=== PATIENT | female | born 1965 | race Caucasian/White ===

== ENCOUNTER 2017-08-10 13:04 | Emergency (ER) | payer OTHER ==
[~2017-08-10] VITALS: Ht 165.1 cm; Wt 67.6 kg
[2017-08-10 15:11] LABS: ABSOLUTE BASOPHIL COUNT 0 /CUMM (0.0-0.2); ABSOLUTE EOSINOPHIL COUNT 0.4 /CUMM (0.0-0.7); ABSOLUTE GRANULOCYTE CT 5.7 /CUMM (1.4-6.5); ABSOLUTE LYMPH COUNT 2.6 /CUMM (1.2-3.4); ABSOLUTE MONOCYTE COUNT 0.5 /CUMM (0.10-0.60); BASOPHIL % 0.4 % (0.0-2.0); EOSINOPHIL % 4.1 % (0-5); GRANULOCYTE % 62.3 % (42.2-75.2); HEMATOCRIT 37.7 % (37-47); MEAN CORPUSCULAR HGB 32.7 PG (27.0-31.0); MEAN CORPUSCULAR HGB CONC 33.7 G/DL (33.0-37.0); MEAN CORPUSCULAR VOLUME 97.1 FL (81.0-99.0); MEAN PLATELET VOLUME 8.3 FL (7.4-10.4); PLATELET COUNT 333 /CUMM (130-400); RBC DISTRIBUTION WIDTH 13.7 % (11.5-14.5); RED BLOOD CELL CT 3.88 /CUMM (4.20-5.40); WHITE BLOOD CELL COUNT 9.1 /CUMM (4.8-10.8)
--- NOTE | 2017-08-10 17:06 | ED GENERAL ADULT ---
History of Present Illness General Chief Complaint: ETOH/Drug Related Complaint Stated Complaint: SENT FOR CLEARENCE TO [facility] Source: patient Exam Limitations: no limitations Vital Signs & Intake/Output Vital Signs & Intake/Output Vital Signs Date Time Temp Pulse Resp B/P B/P Pulse O2 O2 Flow FiO2 Mean Ox Delivery Rate 08/10 1728 97.8 82 20 137/69 08/10 1727 Room Air 08/10 1726 97.8 82 20 137/69 100 08/10 1333 96.5 78 18 107/55 94 Room Air ED Intake and Output 08/11 0000 08/10 1200 Intake Total Output Total Balance Patient 149 lb Weight Weight Reported by Patient Measurement Method Allergies Coded Allergies: No Known Drug Allergies (Intermediate, NONE 08/10/17) Triage Note: HERE FOR MEDICAL CLEARANCE FOR HIGH P21. (DETOX OFF ALCOHOL) . LAST DRINK 2 DAYS AGO. HAS BEEN TAKING CLONAZEPAN .5 MG FOR "SHAKES" AND ANXIETY. Triage Nurses Notes Reviewed? yes Onset: Gradual Duration: worse persistent since (years) Timing: recent history Injury Environment: home Severity: moderate Severity Numbers: 6 Modifying Factors: Improves With: other (benzos). Associated Symptoms: anxiety HPI: Patient is a 52-year-old female with history of alcohol dependence and abuse along with anxiety and depression presenting to the emergency department for clearance prior to going to outside detox facility. Patient reports her last drink was a day and a half ago. Denies any other drug use. She does report that she is prescribed clonazepam for breakthrough anxiety. She took 2.5 mg tablets earlier today for her anxiety. No history of withdrawal seizures. Denies any nausea vomiting or abdominal pain. No diarrhea. The muscle aches. No visual changes. Denies any hallucinations. Denies any suicidal or homicidal ideation. She works that she's been drinking anywhere from 10-12 drinks, hard alcohol daily for the past 20 years. She was sober for a period of 5 months copiers ago and then relapsed. Denies any history of pancreatitis. denies going through detox in the past. (Carlos GOULD,Buffy) Reconcile Medications No Known Home Medications (Doug WINTER,Romy) Past History Travel History Traveled to [place] past 21 day No Medical History Any Pertinent Medical History? see below for history Respiratory: asthma Psychiatric: anxiety Surgical History Surgical History: non-contributory Psychosocial History What is your primary language [place] Tobacco Use: Never used ETOH Use: alcoholic Family History Hx Contributory? No (Buffy Peralta) Review of Systems Review of Systems Constitutional: Reports: no symptoms. Comments Review of systems: See HPI, All other systems negative. Constitutional, no chills fever or weight loss HEENT: No visual changes no sore throat no congestion Cardiovascular: No chest pain ,palpitation Skin, no jaundice no rashes Respiratory: No dyspnea cough sputum or hemoptysis GI: No nausea no vomiting : No dysuria No hematuria Muscle skeletal: no back pain, no neck pain, Neurologic: No numbness no confusion, no headache Psych: Positive anxiety and depression Heme/endocrine: No bruising no bleeding no polyuria or polydipsia Immunology: No splenectomy or history of AIDS (Buffy Peralta) Physical Exam Physical Exam General Appearance: well developed/nourished, no apparent distress, alert, anxious Comments: Well-developed well-nourished person in no acute distress HEENT: Pupils equally round and reactive to light and accommodation. Nose is atraumatic. External auditory canal and Tympanic membranes clear. Pharynx normal. No swelling or edema. Neck: Normal inspection Cardiovascular: Regular rate and rhythms no murmurs rubs or gallops, normal JVP Respiratory: Chest nontender. No respiratory distress.breath sounds clear to auscultation bilaterally Abdomen: Soft, nontender nondistended, no appreciable organomegaly. Normal bowel sounds. No ascites Extremity: No edema Neuro: Alert oriented x3, motor sensory normal, cranial nerves II through XII grossly intact. Skin: No appreciable rash on exposed skin, skin is warm and dry. Psych: Appears slightly anxious and slighly shakey, memory and judgment is normal. Core Measures ACS in differential dx? No CVA/TIA Diagnosis: No Sepsis Present: No Sepsis Focused Exam Completed? No (Buffy Peralta) Progress Differential Diagnoses I considered the following diagnoses in my evaluation of the patient: Alcohol dependence, alcohol withdrawal, electrolyte abnormality, generalized anxiety disorder, major depressive disorder Plan of Care: Orders Procedure Date/time Status URINE DRUG SCREEN FOR ER ONLY 08/10 1317 Complete LIPASE 08/10 1317 Complete ETHANOL 08/10 1317 Complete COMPREHENSIVE METABOLIC PANEL 08/10 1317 Complete CBC WITHOUT DIFFERENTIAL 08/10 1317 Complete Laboratory Tests 02/14/18 1611: Urine Opiates Screen < 100.00, Methadone Screen 74, Barbiturate Screen < 60, Ur Phencyclidine Scrn < 6.00, Amphetamines Screen < 100, U Benzodiazepines Scrn < 85, Urine Cocaine Screen < 50, Urine Cannabis Screen < 5.00 08/10/17 1502: Anion Gap 11, Estimated GFR > 60, BUN/Creatinine Ratio 8.6, Glucose 154 H, Calcium 9.3, Total Bilirubin 0.7, AST 18, ALT 25, Alkaline Phosphatase 70, Total Protein 6.6, Albumin 4.2, Globulin 2.4, Albumin/Globulin Ratio 1.8, Lipase 91, CBC w Diff NO MAN DIFF REQ, RBC 3.88 L, MCV 97.1, MCH 32.7 H, MCHC 33.7, RDW 13.7, MPV 8.3, Gran % 62.3, Lymphocytes % 28.1, Monocytes % 5.1, Eosinophils % 4.1, Basophils % 0.4, Absolute Granulocytes 5.7, Absolute Lymphocytes 2.6, Absolute Monocytes 0.5, Absolute Eosinophils 0.4, Absolute Basophils 0, Serum Alcohol < 10.0 Initial ED EKG: none Comments: 08/10/2017 5:17:02 PM patient has been sober for the past day and a half, currently no alcohol in her system and drug screen unremarkable. Patient seems score is between a 1 and 2. No history of dull seizures. Patient medically cleared for high [employer]. [facility] no longer shuttling patients today. Patient has a family member, her brother is here to bring her to the detox facility. Spoke with Pablo velazco, he reported that it was okay to let the patient go to [facility] in private car at this time. Patient understands that she needs to blow a 0 and a breathalyzer prior to admission. (Carlos GOULD,Buffy) Departure Departure Time of Disposition: 1705 Disposition: OTHER GENERAL HOSPITAL (ACUTE) Condition: Stable Clinical Impression Primary Impression: Alcohol withdrawal Qualifiers: Complication of substance-induced condition: uncomplicated Qualified Code: F10.230 - Alcohol dependence with withdrawal, uncomplicated Referrals: Kwaku Santoyo MD (PCP/Family) Additional Instructions: Go directly to [facility]. You were given a copy of your lab work results. Return to the emergency department for any worsening symptoms or concerns. Departure Forms: Customer Survey General Discharge Information (Buffy Peralta) Departure Prescriptions: Current Visit Scripts No Known Home Medications PA/SKIN PEELING MACHINE OPERATOR Co-Sign Statement Statement: ED Attending supervision documentation- [] I saw and evaluated the patient. I have also reviewed all the pertinent lab results and diagnostic results. I agree with the findings and the plan of care as documented in the PA's/SKIN PEELING MACHINE OPERATOR's documentation. [X] I have reviewed the ED Record and agree with the PA's/SKIN PEELING MACHINE OPERATOR's documentation. [] Additions or exceptions (if any) to the PAs/SKIN PEELING MACHINE OPERATOR's note and plan are summarized below: [] (Doug WINTER,Romy) Critical Care Note Critical Care Note Critical Care Time: non-applicable (Buffy Peralta)
[2017-08-10 17:28] VITALS: BP 137/69
== END 2017-08-10 17:29 | disposition short-term general hospital (02) ==
LOC: ERH 13:04
PROVIDERS: Physician Assistant Medical
DX: F10.239 Alcohol dependence with withdrawal, unspecified (principal)
CPT/HCPCS: 80307; G0480